=== PATIENT | female | born 1995 ===

== ENCOUNTER 2020-09-23 08:58 | Inpatient (IN) | payer BC ==
[2020-09-23] MEDS ORDERED: Misoprostol 200 MCG Tab PO PRN (09:12)
[2020-09-23] MEDS ORDERED: Sodium Chloride 0.9% 10 ML SDV IV PRN (09:12)
[2020-09-23] MEDS ORDERED: Lidocaine 1% 50 ML MDV INJECT PRN (09:12)
[2020-09-23] MEDS ORDERED: Tranexamic Acid 1,000 MG in Sodium Chloride 0.9% 100 ML IV PRN (09:12)
[2020-09-23] MEDS ORDERED: Sodium Chloride 0.9% 2.5 ML Syringe FLUSH PRN (09:12)
[2020-09-23] MEDS ORDERED: Ondansetron 4 MG/2 ML SDV IVPUSH PRN (09:12)
[2020-09-23] MEDS ORDERED: Water For Irrigation,Sterile 1,000 ML Container IRR PRN (09:12)
[2020-09-23] MEDS ORDERED: Carboprost Tromethamine 250 MCG/1 ML Amp IM PRN (09:12)
[2020-09-23] MEDS ORDERED: Sodium Chloride 0.9% 10 ML Syringe FLUSH PRN (09:12)
[2020-09-23] MEDS ORDERED: Butorphanol 1 MG/ML SDV IVPUSH PRN (09:12)
[2020-09-23] MEDS ORDERED: Methylergonovine 0.2 MG/1 ML Amp IM PRN (09:12)
[2020-09-23] MEDS ORDERED: Terbutaline 1 MG/ML SDV SUBCUT PRN (09:12)
[2020-09-23] MEDS ORDERED: Oxytocin/0.9 % Sodium Chloride 30 UNIT/500 ML BAG IV SCH ×2 (09:15)
[2020-09-23] MEDS: Lactated Ringers 1,000 ML IV SCH ×2 (12:45→18:40)
[2020-09-23] MEDS ORDERED: fentaNYL 100 MCG/2 ML SDV ONE ×2 (18:41→21:27)
[2020-09-23] MEDS ORDERED: Ropivacaine HCl/PF 100 ML ONE (18:41)
--- NOTE | 2020-09-23 19:19 | PCM.PREANE ---
Preanesthetic Assessment - Anesthesia/Transfusion/Family Hx Anesthesia History: Prior Anesthesia Without Reaction Family History of Anesthesia Reaction: No Transfusion History: No Prior Transfusion(s) - Review of Systems Pulmonary: Other (COVID Positive. Asymptomatic.) - Physical Assessment NPO Status Date: 09/23/20 NPO Status Time: 12:00 Height: 1.65 m Weight: 63.957 kg ASA Class: 2 - Lab Values: Laboratory Last Values WBC 8.36 K/uL (4.0-11.0) 09/23/20 12:45 RBC 3.94 M/uL (4.30-5.90) L 09/23/20 12:45 Hgb 11.8 g/dL (12.0-16.0) L 09/23/20 12:45 Hct 35.9 % (36.0-46.0) L 09/23/20 12:45 MCV 91.1 fL (80.0-98.0) 09/23/20 12:45 MCH 29.9 pg (27.0-32.0) 09/23/20 12:45 MCHC 32.9 g/dL (31.0-37.0) 09/23/20 12:45 RDW Std Deviation 47.1 fl (28.0-62.0) 09/23/20 12:45 RDW Coeff of Leland 14 % (11.0-15.0) 09/23/20 12:45 Plt Count 206 K/uL (150-400) 09/23/20 12:45 MPV 11.20 fL (7.40-12.00) 09/23/20 12:45 Nucleated RBC % 0.0 /100WBC 09/23/20 12:45 Nucleated RBCs # 0 K/uL 09/23/20 12:45 Blood Type A NEGATIVE 09/23/20 12:45 Antibody Screen NEGATIVE 09/23/20 12:45 - Allergies Allergies/Adverse Reactions: Allergies Allergy/AdvReac Type Severity Reaction Status Date / Time mupirocin [From Bactroban] Allergy Hives Verified 09/23/20 09:17 Penicillins Allergy Hives Verified 09/23/20 09:17 - Acknowledgements Anesthesia Type Planned: Epidural Pt an Appropriate Candidate for the Planned Anesthesia: Yes Alternatives and Risks of Anesthesia Discussed w Pt/Guardian: Yes Pt/Guardian Understands and Agrees with Anesthesia Plan: Yes PreAnesthesia Questionnaire 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 - Infectious Disease History Infectious Disease History: Reports: Other (See Below) Other Infectious Disease History: COVID Positive - Past Surgical History HEENT Surgical History: Reports: Oral Surgery Other HEENT Surgeries/Procedures: 2015: [place] Teeth removal Musculoskeletal Surgical History: Reports: Other (See Below) Other Musculoskeletal Surgeries/Procedures:: 2014 Bunion removal, both feet. 2014 Tendon repair, both calves Dermatological Surgical History: Reports: Plastic Surgical Reconstruction/Repair - SUBSTANCE USE Recreational Drug Use History: No - HOME MEDS Home Medications: Home Meds Ferrous Sulfate 325 mg PO DAILY 09/23/20 [History] Pnv No.95/Ferrous Fum/Folic AC [ Vitamin Tablet] 1 each PO DAILY 09/23/20 [History] Vitamin B Complex 1 each PO DAILY 09/23/20 [History] - CURRENT (IN HOUSE) MEDS Current Meds: Current Medications Butorphanol Tartrate (Stadol) 1 mg IVPUSH Q1H PRN PRN Reason: Pain Carboprost Tromethamine (Hemabate Ds) 250 mcg IM ASDIRECTED PRN PRN Reason: Post Hemorrhage Lactated Ringer's (Ringers, Lactated) 1,000 mls @ 150 mls/hr IV ASDIRECTED DALI Last Admin: 09/23/20 12:45 Dose: 150 mls/hr Documented by: Oxytocin/Sodium Chloride (Oxytocin 30 Unit/500 Ml-Ns) 30 unit in 500 mls @ 999 mls/hr IV TITRATE DALI Tranexamic Acid 1,000 mg/ (Sodium Chloride) 110 mls @ 660 mls/hr IV ONETIME PRN PRN Reason: Bleeding Oxytocin/Sodium Chloride (Oxytocin 30 Unit/500 Ml-Ns) 30 unit in 500 mls @ 2 mls/hr IV TITRATE DALI; Protocol Last Titration: 09/23/20 16:55 Dose: 12 munits/min, 12 mls/hr Documented by: Lidocaine HCl (Xylocaine 1%) 50 ml INJECT ONETIME PRN PRN Reason: Laceration repair Methylergonovine Maleate (Methergine) 0.2 mg IM ASDIRECTED PRN PRN Reason: Post Hemorrhage Misoprostol (Cytotec) 200 mcg PO ONETIME PRN PRN Reason: Post Hemorrhage Ondansetron HCl (Zofran) 4 mg IVPUSH Q4H PRN PRN Reason: Nausea/Vomiting Sodium Chloride (Saline Flush) 10 ml FLUSH ASDIRECTED PRN PRN Reason: Keep Vein Open Sodium Chloride (Saline Flush) 2.5 ml FLUSH ASDIRECTED PRN PRN Reason: Keep Vein Open Sodium Chloride (Normal Saline) 10 ml IV ASDIRECTED PRN PRN Reason: IV Use Sterile Water (Sterile Water For Irrigation) 1,000 ml IRR ASDIRECTED PRN PRN Reason: delivery Terbutaline Sulfate (Brethine) 0.25 mg SUBCUT ASDIRECTED PRN PRN Reason: Tacysystole Discontinued Medications Fentanyl (Sublimaze) Confirm Administered Dose 100 mcg .ROUTE .STK-MED ONE Stop: 09/23/20 18:42 Ropivacaine (Naropin 0.2%) Confirm Administered Dose 100 mls @ as directed .ROUTE .STK-MED ONE Stop: 09/23/20 18:42
--- NOTE | 2020-09-23 19:23 | PCM.PRNOTE ---
- Free Text/Narrative Note: Anes Note Patient requests epidurla for L&D. Sitting position, level L3-L4 midline approach. Sterile technique. Chloraprep scrub to lumbar area. Steril fenestrated drape applied. Epidural space easily achieved single attempt with ease using KIMMY techynique. KIMMY at 3 cm. Cath threaded 5 cm with ease. Cath secured at skin using sterile clear adhesive dressing. Test 184 3 c 1.5 % lido with epi negative. 185 Load 10 cc 0.2% ropivicaine with 1 mcg cc fentanyl in slow divided doses. 185 Pump started with 90 cc same solution. Rate is 8 cc hr with 6 cc q 20 min prn bolus. Anastacia well. Time with patient [id number] Jim Dumont MANAGED CARE PROVIDER
--- NOTE | 2020-09-23 21:37 | PCM.PRNOTE ---
- Free Text/Narrative Note: Anes Note I was called to provide a sitting dose for delivery for this patietn. I administered 100 mcg fentnayl plus 5 cc 2% lido with epi in slow bolus. Time with patient [id number] Jim Dumont MOUNTER HAND
[2020-09-23] MEDS ORDERED: Benzocaine/Menthol 20%-0.5% Spray 78 GM Cannister TOP PRN (21:59)
[2020-09-23] MEDS ORDERED: Witch Hazel Medicated Pads 40/Jar TOP PRN (21:59)
[2020-09-23] MEDS ORDERED: Lanolin 100% Cream 7 GM Tube TOP PRN (21:59)
[2020-09-23] MEDS ORDERED: Ibuprofen 400 MG Tab PO PRN (21:59)
[2020-09-23] MEDS ORDERED: Docusate Sodium 100 MG Cap PO PRN (21:59)
[2020-09-23] MEDS ORDERED: Bisacodyl 10 MG Supp RECTAL PRN (21:59)
[2020-09-23] MEDS ORDERED: oxyCODONE 5 MG Tab PO PRN (21:59)
[2020-09-23] MEDS ORDERED: Acetaminophen 500 MG Tab PO PRN ×2 (21:59)
--- NOTE | 2020-09-23 22:08 | PCM.DEL ---
L & D Note - General Info Date of Service: 09/23/20 - Delivery Note Labor: Augmented by ARM, Induced by Oxytocin Cervical Ripening Method: Oxytocin Delivery Outcome: Livebirth Delivery Method: Primary Presentation: Left Occiput Anterior (TONY) Nuchal Cord: None Anesthesia Type: Epidural Amniotic Fluid Description: Clear Episiotomy Type: None Laceration: Labial (Bilateral) Suture type: Vicryl Suture size: 4-0 Cord: 3 Vessels Estimated Blood Loss: 300 Resuscitation Needed: No Score 1 min: 8 Score 5 min: 9 Delivery Comments (Free Text/Narrative):: Live Male delivered at 2129 8/9 weight 3460g - General Info Date of Service: 09/23/20 - Patient Data Weight - Most Recent: 63.957 kg Lab Results Last 24 Hours: Laboratory Results - last 24 hr 09/23/20 09/23/20 Range/Units 12:45 12:45 WBC 8.36 (4.0-11.0) K/uL RBC 3.94 L (4.30-5.90) M/uL Hgb 11.8 L (12.0-16.0) g/dL Hct 35.9 L (36.0-46.0) % MCV 91.1 (80.0-98.0) fL MCH 29.9 (27.0-32.0) pg MCHC 32.9 (31.0-37.0) g/dL RDW Std Deviation 47.1 (28.0-62.0) fl RDW Coeff of Leland 14 (11.0-15.0) % Plt Count 206 (150-400) K/uL MPV 11.20 (7.40-12.00) fL Nucleated RBC % 0.0 /100WBC Nucleated RBCs # 0 K/uL Blood Type A NEGATIVE Antibody Screen NEGATIVE Med Orders - Current: Current Medications Acetaminophen (Tylenol Extra Strength) 500 mg PO Q4H PRN PRN Reason: Pain Acetaminophen (Tylenol Extra Strength) 1,000 mg PO Q4H PRN PRN Reason: Pain Benzocaine/Menthol (Dermoplast Pain Relief 20%-0.5% [place]) 78 gm TOP ASDIRECTED PRN PRN Reason: Perineal Comfort Measure Bisacodyl (Dulcolax) 10 mg RECTAL ONETIME PRN PRN Reason: Constipation Butorphanol Tartrate (Stadol) 1 mg IVPUSH Q1H PRN PRN Reason: Pain Carboprost Tromethamine (Hemabate Ds) 250 mcg IM ASDIRECTED PRN PRN Reason: Post Hemorrhage Docusate Sodium (Colace) 100 mg PO BID PRN PRN Reason: Constipation Emollient Ointment (Lansinoh Hpa) 0 gm TOP ASDIRECTED PRN PRN Reason: Sore Nipples Lactated Ringer's (Ringers, Lactated) 1,000 mls @ 150 mls/hr IV ASDIRECTED DALI Last Admin: 09/23/20 12:45 Dose: 150 mls/hr Documented by: Oxytocin/Sodium Chloride (Oxytocin 30 Unit/500 Ml-Ns) 30 unit in 500 mls @ 999 mls/hr IV TITRATE [facility] Tranexamic Acid 1,000 mg/ (Sodium Chloride) 110 mls @ 660 mls/hr IV ONETIME PRN PRN Reason: Bleeding Oxytocin/Sodium Chloride (Oxytocin 30 Unit/500 Ml-Ns) 30 unit in 500 mls @ 2 mls/hr IV TITRATE [facility]; Protocol Last Titration: 09/23/20 20:51 Dose: 16 munits/min, 16 mls/hr Documented by: Ibuprofen (Motrin) 400 mg PO Q4H PRN PRN Reason: Pain Ibuprofen (Motrin) 800 mg PO Q6H PRN PRN Reason: Pain Lidocaine HCl (Xylocaine 1%) 50 ml INJECT ONETIME PRN PRN Reason: Laceration repair Methylergonovine Maleate (Methergine) 0.2 mg IM ASDIRECTED PRN PRN Reason: Post Hemorrhage Ondansetron HCl (Zofran) 4 mg IVPUSH Q4H PRN PRN Reason: Nausea/Vomiting Oxycodone HCl (Oxycodone) 5 mg PO Q2H PRN PRN Reason: Pain Sodium Chloride (Saline Flush) 10 ml FLUSH ASDIRECTED PRN PRN Reason: Keep Vein Open Sodium Chloride (Saline Flush) 2.5 ml FLUSH ASDIRECTED PRN PRN Reason: Keep Vein Open Sodium Chloride (Normal Saline) 10 ml IV ASDIRECTED PRN PRN Reason: IV Use Sterile Water (Sterile Water For Irrigation) 1,000 ml IRR ASDIRECTED PRN PRN Reason: delivery Witch Gloria (Tucks) 1 pad TOP ASDIRECTED PRN PRN Reason: comfort care Discontinued Medications Fentanyl (Sublimaze) Confirm Administered Dose 100 mcg .ROUTE .STK-MED ONE Stop: 09/23/20 18:42 Fentanyl (Sublimaze) Confirm Administered Dose 100 mcg .ROUTE .STK-MED ONE Stop: 09/23/20 21:28 Ropivacaine (Naropin 0.2%) Confirm Administered Dose 100 mls @ as directed .ROUTE .STK-MED ONE Stop: 09/23/20 18:42 Misoprostol (Cytotec) 200 mcg PO ONETIME PRN PRN Reason: Post Hemorrhage Terbutaline Sulfate (Brethine) 0.25 mg SUBCUT ASDIRECTED PRN PRN Reason: Tacysystole - Problem List & Annotations (1) Vaginal delivery SNOMED Code(s): 278760226 Code(s): O80 - ENCOUNTER FOR FULL-TERM UNCOMPLICATED DELIVERY Status: Acute Current Visit: Yes (2) Lab test positive for detection of COVID-19 virus SNOMED Code(s): 8801063381923789 Code(s): U07.1 - COVID-19 Status: Acute Current Visit: Yes - Problem List Review Problem List Initiated/Reviewed/Updated: Yes - My Orders Last 24 Hours: My Active Orders 09/23/20 09:08 Precautions [COMM] Routine 09/23/20 21:59 Patient Status [ADT] Routine May Shower [RC] ASDIRECTED Up ad Gloria [RC] ASDIRECTED Vital Signs [RC] PER UNIT ROUTINE BLOOD GAS ARTERIAL UMBILICAL [BG] Urgent BLOOD GAS VENOUS UMBILICAL [BG] Urgent RHIG WORKUP, [BBK] Routine Acetaminophen [Tylenol Extra Strength] 1,000 mg PO Q4H PRN Acetaminophen [Tylenol Extra Strength] 500 mg PO Q4H PRN Benzocaine/Menthol [Dermoplast Pain Relief 20%-0.5% [place]] 78 gm TOP ASDIRECTED PRN Docusate Sodium [Colace] 100 mg PO BID PRN Ibuprofen [Motrin] 400 mg PO Q4H PRN Ibuprofen [Motrin] 800 mg PO Q6H PRN Lanolin [Lansinoh HPA] See Dose Instructions TOP ASDIRECTED PRN bisacodyL [Dulcolax] 10 mg RECTAL ONETIME PRN oxyCODONE 5 mg PO Q2H PRN witch Gloria [Tucks] 1 pad TOP ASDIRECTED PRN Assess Lochia [WOMSER] Per Unit Routine Assess Uterine Involution [WOMSER] Per Unit Routine Peripheral IV Discontinue [OM.PC] Routine Resuscitation Status Routine 09/24/20 05:11 CMP [COMPREHENSIVE METABOLIC PN,CMP] [CHEM] Routine HEMOGLOBIN/HEMATOCRIT,HH [HEME] Timed - Assessment Assessment:: 25yo P3003 s/p PPD 0 Covid positive
--- NOTE | 2020-09-24 05:11 | PCM.PNPP ---
- General Info Date of Service: 09/24/20 Subjective Update: 25yo P3 s/p PPD 1 Normal lochia RH positive Functional Status: Reports: Pain Controlled, Tolerating Diet, Ambulating, Urinating - Review of Systems General: Reports: No Symptoms HEENT: Reports: No Symptoms Pulmonary: Reports: No Symptoms Cardiovascular: Reports: No Symptoms Gastrointestinal: Reports: No Symptoms Genitourinary: Reports: No Symptoms Musculoskeletal: Reports: No Symptoms Skin: Reports: No Symptoms Neurological: Reports: No Symptoms Psychiatric: Reports: No Symptoms - General Info Date of Service: 09/24/20 - Patient Data Weight - Most Recent: 63.957 kg Lab Results - Last 24 Hours: Laboratory Results - last 24 hr 09/23/20 09/23/20 09/23/20 Range/Units 12:45 12:45 21:29 WBC 8.36 (4.0-11.0) K/uL RBC 3.94 L (4.30-5.90) M/uL Hgb 11.8 L (12.0-16.0) g/dL Hct 35.9 L (36.0-46.0) % MCV 91.1 (80.0-98.0) fL MCH 29.9 (27.0-32.0) pg MCHC 32.9 (31.0-37.0) g/dL RDW Std Deviation 47.1 (28.0-62.0) fl RDW Coeff of Leland 14 (11.0-15.0) % Plt Count 206 (150-400) K/uL MPV 11.20 (7.40-12.00) fL Nucleated RBC % 0.0 /100WBC Nucleated RBCs # 0 K/uL Cord ABG pH 7.313 (7.18-7.38) Cord ABG Base Excess -6 (-10--2) Cord VBG pH 7.280 (7.25-7.45) Cord VBG Base Excess -5 (-10--2) Blood Type A NEGATIVE Antibody Screen NEGATIVE Screen (NEGATIVE) RhIG Candidate? Rhogam Indicated 09/23/20 Range/Units 22:38 WBC (4.0-11.0) K/uL RBC (4.30-5.90) M/uL Hgb (12.0-16.0) g/dL Hct (36.0-46.0) % MCV (80.0-98.0) fL MCH (27.0-32.0) pg MCHC (31.0-37.0) g/dL RDW Std Deviation (28.0-62.0) fl RDW Coeff of Leland (11.0-15.0) % Plt Count (150-400) K/uL MPV (7.40-12.00) fL Nucleated RBC % /100WBC Nucleated RBCs # K/uL Cord ABG pH (7.18-7.38) Cord ABG Base Excess (-10--2) Cord VBG pH (7.25-7.45) Cord VBG Base Excess (-10--2) Blood Type Antibody Screen Screen NEGATIVE (NEGATIVE) RhIG Candidate? YES Rhogam Indicated YES, BABY RH POS H Med Orders - Current: Current Medications Acetaminophen (Tylenol Extra Strength) 500 mg PO Q4H PRN PRN Reason: Pain Acetaminophen (Tylenol Extra Strength) 1,000 mg PO Q4H PRN PRN Reason: Pain Benzocaine/Menthol (Dermoplast Pain Relief 20%-0.5% [place]) 78 gm TOP ASDIRECTED PRN PRN Reason: Perineal Comfort Measure Bisacodyl (Dulcolax) 10 mg RECTAL ONETIME PRN PRN Reason: Constipation Butorphanol Tartrate (Stadol) 1 mg IVPUSH Q1H PRN PRN Reason: Pain Carboprost Tromethamine (Hemabate Ds) 250 mcg IM ASDIRECTED PRN PRN Reason: Post Hemorrhage Docusate Sodium (Colace) 100 mg PO BID PRN PRN Reason: Constipation Emollient Ointment (Lansinoh Hpa) 0 gm TOP ASDIRECTED PRN PRN Reason: Sore Nipples Lactated Ringer's (Ringers, Lactated) 1,000 mls @ 150 mls/hr IV ASDIRECTED [facility] Last Admin: 09/23/20 18:40 Dose: 150 mls/hr Documented by: Oxytocin/Sodium Chloride (Oxytocin 30 Unit/500 Ml-Ns) 30 unit in 500 mls @ 999 mls/hr IV TITRATE [facility] Tranexamic Acid 1,000 mg/ (Sodium Chloride) 110 mls @ 660 mls/hr IV ONETIME PRN PRN Reason: Bleeding Oxytocin/Sodium Chloride (Oxytocin 30 Unit/500 Ml-Ns) 30 unit in 500 mls @ 2 mls/hr IV TITRATE DALI; Protocol Last Titration: 09/23/20 21:29 Dose: 8 munits/min, 8 mls/hr Documented by: Ibuprofen (Motrin) 400 mg PO Q4H PRN PRN Reason: Pain Ibuprofen (Motrin) 800 mg PO Q6H PRN PRN Reason: Pain Lidocaine HCl (Xylocaine 1%) 50 ml INJECT ONETIME PRN PRN Reason: Laceration repair Methylergonovine Maleate (Methergine) 0.2 mg IM ASDIRECTED PRN PRN Reason: Post Hemorrhage Ondansetron HCl (Zofran) 4 mg IVPUSH Q4H PRN PRN Reason: Nausea/Vomiting Oxycodone HCl (Oxycodone) 5 mg PO Q2H PRN PRN Reason: Pain Sodium Chloride (Saline Flush) 10 ml FLUSH ASDIRECTED PRN PRN Reason: Keep Vein Open Sodium Chloride (Saline Flush) 2.5 ml FLUSH ASDIRECTED PRN PRN Reason: Keep Vein Open Sodium Chloride (Normal Saline) 10 ml IV ASDIRECTED PRN PRN Reason: IV Use Sterile Water (Sterile Water For Irrigation) 1,000 ml IRR ASDIRECTED PRN PRN Reason: delivery Witch Gloria (Tucks) 1 pad TOP ASDIRECTED PRN PRN Reason: comfort care Discontinued Medications Fentanyl (Sublimaze) Confirm Administered Dose 100 mcg .ROUTE .STK-MED ONE Stop: 09/23/20 18:42 Fentanyl (Sublimaze) Confirm Administered Dose 100 mcg .ROUTE .STK-MED ONE Stop: 09/23/20 21:28 Ropivacaine (Naropin 0.2%) Confirm Administered Dose 100 mls @ as directed .ROUTE .STK-MED ONE Stop: 09/23/20 18:42 Misoprostol (Cytotec) 200 mcg PO ONETIME PRN PRN Reason: Post Hemorrhage Terbutaline Sulfate (Brethine) 0.25 mg SUBCUT ASDIRECTED PRN PRN Reason: Tacysystole - Interaction Support Person: - Recovery Exam Fundal Tone: Firm Fundal Level: At Umbilicus Fundal Placement: Midline Lochia Amount: Small Lochia Color: Rubra/Red Episiotomy/Laceration: Approximated - Exam General: Alert Neck: Supple Lungs: Clear to Auscultation, Normal Respiratory Effort Cardiovascular: Regular Rate, Regular Rhythm GI/Abdominal Exam: Normal Bowel Sounds Extremities: Normal Inspection Neurological: No New Focal Deficit Psy/Mental Status: Alert - Problem List & Annotations (1) Vaginal delivery SNOMED Code(s): 695556842 Code(s): O80 - ENCOUNTER FOR FULL-TERM UNCOMPLICATED DELIVERY Status: Acute Current Visit: Yes (2) Lab test positive for detection of COVID-19 virus SNOMED Code(s): 6194185595319313 Code(s): U07.1 - COVID-19 Status: Acute Current Visit: Yes - Problem List Review Problem List Initiated/Reviewed/Updated: Yes - My Orders Last 24 Hours: My Active Orders 09/23/20 09:08 Precautions [COMM] Routine 09/23/20 21:59 Patient Status [ADT] Routine May Shower [RC] ASDIRECTED Up ad Gloria [RC] ASDIRECTED Vital Signs [RC] PER UNIT ROUTINE Acetaminophen [Tylenol Extra Strength] 1,000 mg PO Q4H PRN Acetaminophen [Tylenol Extra Strength] 500 mg PO Q4H PRN Benzocaine/Menthol [Dermoplast Pain Relief 20%-0.5% [place]] 78 gm TOP ASDIRECTED PRN Docusate Sodium [Colace] 100 mg PO BID PRN Ibuprofen [Motrin] 400 mg PO Q4H PRN Ibuprofen [Motrin] 800 mg PO Q6H PRN Lanolin [Lansinoh HPA] See Dose Instructions TOP ASDIRECTED PRN bisacodyL [Dulcolax] 10 mg RECTAL ONETIME PRN oxyCODONE 5 mg PO Q2H PRN witch Gloria [Tucks] 1 pad TOP ASDIRECTED PRN Assess Lochia [WOMSER] Per Unit Routine Assess Uterine Involution [WOMSER] Per Unit Routine Peripheral IV Discontinue [OM.PC] Routine Resuscitation Status Routine 09/23/20 22:38 SCREEN [BBK] Routine RH IMMUNE GLOBULIN [BBK] Routine RHIG WORKUP, [BBK] Routine 09/24/20 05:01 Ready for Discharge [RC] PER UNIT ROUTINE 09/24/20 05:11 CMP [COMPREHENSIVE METABOLIC PN,CMP] [CHEM] Routine HEMOGLOBIN/HEMATOCRIT,HH [HEME] Routine - Assessment Assessment:: 25yo P3003 s/p PPD 1 Covid positive asymptomatic RH positive Normal lochia - Plan Plan:: Routine care RHogam today Pain control as needed Discharge home today as per patient's request
[2020-09-24 06:57] LABS: BLOOD UREA NITROGEN,BUN 4 mg/dL (7.0-18.0); CHLORIDE,CL 109 mmol/L (98-107); GLUCOSE RANDOM 99 mg/dL (74-106); POTASSIUM,K 3.6 mmol/L (3.5-5.1); SODIUM,NA 141 mmol/L (136-145)
--- NOTE | 2020-09-24 07:10 | PCM48HPAN ---
Post Anesthesia Note - EVALUATION WITHIN 48HRS OF ANESTHETIC Vital Signs in Normal Range: Yes Patient Participated in Evaluation: Yes Respiratory Function Stable: Yes Airway Patent: Yes Cardiovascular Function Stable: Yes Hydration Status Stable: Yes Pain Control Satisfactory: Yes Nausea and Vomiting Control Satisfactory: Yes Mental Status Recovered: Yes Vital Signs: Last Vital Signs Temp Pulse 97 09/24/20 03:40 Resp 19 09/24/20 03:40 BP 128/82 09/24/20 03:40 Pulse Ox 98 09/24/20 03:40
[2020-09-24] MEDS: Ibuprofen 800 MG Tab PO PRN ×2 (09:30→15:50)
--- NOTE | 2020-09-28 09:20 | OR ---
SURGEON: GERALDINE LOERA DATE OF PROCEDURE: 09/24/2020 PREOPERATIVE DIAGNOSIS: A 25-year-old G3, P2-0-0-2 at 39 weeks for induction of labor secondary to rapid labor, also COVID positive and Rh negative. POSTOPERATIVE DIAGNOSIS SAME PROCEDURES: 1. Normal spontaneous vaginal delivery. 2. Repair of bilateral labial laceration. ANESTHESIA: Epidural. ESTIMATED BLOOD LOSS: 300. IV FLUIDS: Pitocin running. NOTES AND FINDING: Live male delivered at 2129, score is 8 and 9, weight is 3460 g. BRIEF HISTORY ABOUT THE PATIENT: She is a 25-year-old low risk patient, Rh negative, who came in for induction of labor. When she came in, she was noted to be COVID positive. She was, however, asymptomatic. She denied any symptoms. When she came, she was about 2 cm dilated. She was started on Pitocin with patient receiving Pitocin, she had normal progress, became 4 cm. AROM was done with clear fluid. Then, she made rapid progress and became fully dilated. DESCRIPTION OF PROCEDURE: The patient is being fully dilated. She was encouraged to push. A good pushing effort, she delivered the head subsequently by the anterior and posterior shoulder. The body of the was delivered. Infant was placed on maternal abdomen. Delayed cord clamping was observed. Cord was clamped and cut. The placenta was delivered via controlled cord traction. Cord blood gases were obtained. The perineum was inspected. The bilateral labial laceration was noted. Two interrupted sutures were placed with 4-0 Vicryl. The patient tolerated the procedure well. All instrument and pad counts were correct x2. TAURUS / JASSON /[id number] MTDD
== END 2020-09-25 05:15 | disposition home or self-care (01) | DRG 560 ==
LOC: MW.OB 08:58 → OBSVTOIN 21:29 → MW.OB 21:29
PROVIDERS: ADMIT Obstetrics & Gynecology; ATTEND Obstetrics & Gynecology
PROC: 10E0XZZ Delivery of Products of Conception, External Approach (ICD-10-PCS; principal; 2020-09-23)
PROC: 10907ZC Drainage of Amniotic Fluid, Therapeutic from Products of Conception, Via Natural or Artificial Opening (ICD-10-PCS; 2020-09-23)
PROC: 3E0P7VZ Introduction of Hormone into Female Reproductive, Via Natural or Artificial Opening (ICD-10-PCS; 2020-09-23)
PROC: 3E033VJ Introduction of Other Hormone into Peripheral Vein, Percutaneous Approach (ICD-10-PCS; 2020-09-23)
PROC: 0UQMXZZ Repair Vulva, External Approach (ICD-10-PCS; 2020-09-23)
PROC: 3E0R3BZ Introduction of Anesthetic Agent into Spinal Canal, Percutaneous Approach (ICD-10-PCS; 2020-09-23)
PROC: 00HU33Z Insertion of Infusion Device into Spinal Canal, Percutaneous Approach (ICD-10-PCS; 2020-09-23)
PROC: 3E0334Z Introduction of Serum, Toxoid and Vaccine into Peripheral Vein, Percutaneous Approach (ICD-10-PCS; 2020-09-24)
DX: O98.52 Other viral diseases complicating childbirth (principal); U07.1 COVID-19; Z3A.39 39 weeks gestation of pregnancy; Z37.0 Single live birth; O70.0 First degree perineal laceration during delivery; O26.893 Other specified pregnancy related conditions, third trimester; Z67.11 Type A blood, Rh negative
CPT/HCPCS: 01967; 36415; 51702; 80053; 82803; 85014; 85018; 85027; 85460; 86592; 86850; 86900; 86901; A9270-GY; J2590; J2792; J2795; J3010; J7120